=== PATIENT | female | born 1940 | race Caucasian/White ===

== ENCOUNTER 2024-07-26 12:30 | Inpatient (IN) | payer MEDICARE, OTHER ==
[~2024-07-26] VITALS: Ht 167.6 cm; Wt 59.0 kg
[2024-07-26] MEDS ORDERED: IPRATROPIUM BROMIDE 0.5 MG/2.5 ML NEBU ONE (13:24)
[2024-07-26] MEDS ORDERED: ALBUTEROL SULFATE 2.5 MG/3 ML NEBU ONE ×2 (13:24→14:32)
[2024-07-26 13:26] VITALS: O2SAT 99
[2024-07-26] MEDS: IPRATROPIUM BROMIDE 0.5 MG/2.5 ML NEBU NEB ONE (13:32)
[2024-07-26] MEDS: ALBUTEROL SULFATE 2.5 MG/3 ML NEBU NEB ONE ×2 (13:32→14:38)
[2024-07-26 13:46] LABS: BASOPHILS # (AUTO) 0.1 K/UL (0.0-0.2); BASOPHILS % (AUTO) 0.6 % (0.0-2.0); DIFFERENTIAL COMMENT 1; EOSINOPHILS # (AUTO) 0.4 K/uL (0.0-0.7); EOSINOPHILS % (AUTO) 3.8 % (0.0-7.0); HEMATOCRIT 29.3 % (31.2-41.9); HEMOGLOBIN 9.3 g/dL (10.9-14.3); LYMPHOCYTES # (AUTO) 1.3 K/uL (0.8-4.8); MEAN CORPUSCULAR HEMOGLOBIN 28.3 uug (24.7-32.8); MEAN CORPUSCULAR HGB CONC 32 g/dL (32.3-35.6); MEAN CORPUSCULAR VOLUME 89.7 fL (75.5-95.3); MONOCYTES # (AUTO) 0.7 K/uL (0.1-1.30); NEUTROPHILS # (AUTO) 8.2 K/uL (1.8-8.9); NEUTROPHILS % (AUTO) 76.6 % (38.5-71.5); PLATELET COUNT (AUTO) 295 K/uL (179-408); RED BLOOD CELL COUNT(AUTO) 3.27 MIL/uL (3.63-4.92); RED CELL DISTRIBUTION WIDTH 18.5 % (12.3-17.7); WHITE BLOOD COUNT (AUTO) 10.6 K/uL (3.8-11.8)
[2024-07-26 13:58] LABS: CALCIUM 8.8 mg/dL (8.5-10.1); CARBON DIOXIDE 29 mmol/L (21-32); CHLORIDE 107 mmol/L (98-107); GLUCOSE 93 mg/dL (74-106); POTASSIUM 5.1 mmol/L (3.5-5.1); SODIUM SERUM 143 mmol/L (136-145); UREA NITROGEN, BLOOD 29 mg/dL (7-18)
[2024-07-26] MEDS ORDERED: methylPREDNISolone SOD SUCC 125 MG/2 ML VIAL ONE (14:06)
[2024-07-26] MEDS ORDERED: MAGNESIUM SULFATE/D5W 200 ML ONE (14:06)
[2024-07-26 14:11] LABS: ALANINE AMINOTRANSFERASE 36 U/L (14-59); ALBUMIN 3.1 g/dL (3.4-5.0); ALKALINE PHOSPHATASE 151 U/L (50-136); ASPARTATE AMINOTRANSFERASE 26 U/L (15-37); BILIRUBIN,DIRECT 0.1 mg/dL (0.0-0.2); BILIRUBIN,TOTAL 0.3 mg/dL (0.2-1.0); NT-PRO BNP 355 pg/mL (0-125); TOTAL PROTEIN, SERUM 6.8 g/dL (6.4-8.2)
[2024-07-26] MEDS: MAGNESIUM SULFATE 2 GM in IV DEXTROSE 5% 100 ML IV ONE (14:11)
[2024-07-26] MEDS: methylPREDNISolone SOD SUCC 125 MG/2 ML VIAL IV ONE (14:11)
[2024-07-26] MEDS: IV NORMAL SALINE 1000 ML BAG IV ONE (14:11)
[2024-07-26 14:26] VITALS: O2SAT 100; O2SAT 99
[2024-07-26 14:35] VITALS: O2SAT 98
[2024-07-26 14:51] LABS: IRON, SERUM 32 ug/dL (50-175)
[2024-07-26 15:35] VITALS: O2SAT 100; O2SAT 98
[2024-07-26 16:07] LABS: ABG BASE EXCESS -1.9 mmol/L (-2.0-3.0); ABG HCO3 27.6 mmol/L (21.0-28.0); ABG PH 7.172 (7.350-7.450); ABG PO2 93.1 mmHg (83.0-108.0); ABG SITE RIGHT RADIAL; AaDO2 94.7 mmHg; COHb 0.8 % (0.5-1.5); MetHb 0.2 % (0.0-1.5); O2Hb 95.8 % (94.0-98.0)
[2024-07-26] MEDS ORDERED: IV NORMAL SALINE 250 ML IV ONE (16:36)
[2024-07-26] MEDS ORDERED: IOHEXOL 350 100 ML INFUS..BTL ONE ×2 (16:36→17:50)
[2024-07-26] MEDS ORDERED: SWABABLE VALVE TRANSFER SET EA MC ONE (16:36)
[2024-07-26] MEDS ORDERED: ENOXAPARIN SODIUM 60 MG/0.6 ML DISP.SYRIN SQ ONE (19:24)
[2024-07-26] MEDS ORDERED: TEMAZEPAM 15 MG CAPSULE PO PRN (19:30)
[2024-07-26] MEDS ORDERED: ONDANSETRON 4 MG/2 ML VIAL IV PRN (19:30)
[2024-07-26] MEDS ORDERED: levoFLOXacin 500 MG/D5W 500 MG in PREMIXED 1 EACH IV SCH (20:00)
[2024-07-26 21:00] VITALS: BP 148/85; TEMP 98
[2024-07-26] MEDS ORDERED: DOCUSATE SODIUM 250 MG CAPSULE PO SCH (21:00)
[2024-07-26] MEDS: DOCUSATE SODIUM 100 MG CAPSULE PO SCH (21:35)
[2024-07-26] MEDS: ENOXAPARIN SODIUM 60 MG/0.6 ML DISP.SYRIN SQ ONE (21:42)
[2024-07-26] MEDS: methylPREDNISolone SOD SUCC 40 MG/ML VIAL IV SCH (21:44)
[2024-07-27] VITALS (22 sets, daily range): BP systolic 96–209; BP diastolic 65–137; TEMP 97.7–98; O2SAT 95–100
[2024-07-27 05:32] LABS: BASOPHILS % (AUTO) 0.1 % (0.0-2.0); HEMATOCRIT 28.6 % (31.2-41.9); HEMOGLOBIN 9.4 g/dL (10.9-14.3); LYMPHOCYTES # (AUTO) 0.5 K/uL (0.8-4.8); LYMPHOCYTES % (AUTO) 5.2 % (20.5-51.5); MEAN CORPUSCULAR HEMOGLOBIN 28.9 uug (24.7-32.8); MEAN CORPUSCULAR HGB CONC 33 g/dL (32.3-35.6); MEAN CORPUSCULAR VOLUME 88.2 fL (75.5-95.3); MONOCYTES # (AUTO) 0.1 K/uL (0.1-1.30); MONOCYTES % (AUTO) 0.7 % (0.0-11.0); NEUTROPHILS # (AUTO) 9.2 K/uL (1.8-8.9); PLATELET COUNT (AUTO) 291 K/uL (179-408); RED BLOOD CELL COUNT(AUTO) 3.24 MIL/uL (3.63-4.92); RED CELL DISTRIBUTION WIDTH 18.3 % (12.3-17.7); WHITE BLOOD COUNT (AUTO) 9.8 K/uL (3.8-11.8)
[2024-07-27 06:00] LABS: ALANINE AMINOTRANSFERASE 42 U/L (14-59); ALBUMIN 3.1 g/dL (3.4-5.0); ALKALINE PHOSPHATASE 165 U/L (50-136); ASPARTATE AMINOTRANSFERASE 24 U/L (15-37); BILIRUBIN,TOTAL 0.2 mg/dL (0.2-1.0); CALCIUM 8.7 mg/dL (8.5-10.1); CARBON DIOXIDE 29 mmol/L (21-32); CHLORIDE 107 mmol/L (98-107); CHOLESTEROL 266 mg/dL (<200); GLUCOSE 135 mg/dL (74-106); HDL CHOLESTEROL 106 mg/dL (40-60); MAGNESIUM 2.3 mg/dL (1.8-2.4); PHOSPHOROUS 4.6 mg/dL (2.5-4.9); POTASSIUM 5.1 mmol/L (3.5-5.1); SODIUM SERUM 142 mmol/L (136-145); TOTAL PROTEIN, SERUM 6.9 g/dL (6.4-8.2); TRIGLYCERIDES 111 MG/DL (30-150); UREA NITROGEN, BLOOD 29 mg/dL (7-18)
[2024-07-27 06:07] LABS: THYROID STIMULATING HORMONE 4.056 mIU/mL (0.358-3.740)
[2024-07-27] MEDS: PANTOPRAZOLE SODIUM 40 MG TABLET.DR PO SCH (06:29)
[2024-07-27] MEDS: IPRATROPIUM BROMIDE 0.5 MG/2.5 ML NEBU NEB PRN (08:21)
[2024-07-27] MEDS: ALBUTEROL SULFATE 2.5 MG/ 0.5 ML NEBU NEB PRN (08:21)
[2024-07-27] MEDS: HYDROCODONE/APAP 5-325MG TABLET PO PRN (08:39)
[2024-07-27] MEDS: METOPROLOL TARTRATE 25 MG TABLET PO SCH (08:39)
[2024-07-27] MEDS: hydrALAZINE HCL 25 MG TABLET PO PRN (08:39)
[2024-07-27] MEDS: FLUTICASONE/VILANTEROL 1 EACH BLST.W.DEV INH SCH (09:00)
[2024-07-27] MEDS: CEFEPIME HCL 2 GM in IV DEXTROSE 5% 100 ML IV SCH (09:00)
[2024-07-27] MEDS ORDERED: levoFLOXacin 250MG /D5W 50 ML IV SCH ×2 (09:00)
[2024-07-27] MEDS: ENOXAPARIN SODIUM 60 MG/0.6 ML DISP.SYRIN SQ SCH (09:21)
[2024-07-27] MEDS: PROPOFOL 100 ML ONE (09:36)
[2024-07-27] MEDS ORDERED: LEVO75TA7 PO (12:55)
[2024-07-27] MEDS ORDERED: ESCI10TA PO (12:55)
[2024-07-27] MEDS ORDERED: INDO-12 PO (12:55)
[2024-07-27] MEDS ORDERED: DILT300T11 PO (12:55)
[2024-07-27] MEDS ORDERED: LOSA100T31 PO (12:55)
[2024-07-27] MEDS ORDERED: ZOLP5TAB8 PO (12:55)
[2024-07-27] MEDS ORDERED: HYDR-501 PO (12:55)
[2024-07-27] MEDS ORDERED: ROPI4TAB6 PO (12:55)
[2024-07-27] MEDS ORDERED: ATRO2DRO4 SL (13:01)
[2024-07-27] MEDS ORDERED: IPRA3AMP23 IH (13:01)
[2024-07-27] MEDS ORDERED: [UNRECOGNIZED DRUG - CODE] PO (13:01)
[2024-07-27 13:28] LABS: FERRITIN 135 ng/mL (8-252)
[2024-07-27] MEDS: PROPOFOL 100 ML IV PRN (15:47)
[2024-07-27] MEDS: IV D5 1/2 NS 1000 ML 1,000 ML IV PRN (21:54)
[2024-07-28] VITALS (50 sets, daily range): BP systolic 93–167; BP diastolic 56–102; TEMP 98.1–99.4; O2SAT 92–98
[2024-07-28 04:50] LABS: HEMATOCRIT 26.4 % (31.2-41.9); HEMOGLOBIN 8.5 g/dL (10.9-14.3); LYMPHOCYTES # (AUTO) 0.7 K/uL (0.8-4.8); LYMPHOCYTES % (AUTO) 3.5 % (20.5-51.5); MEAN CORPUSCULAR HEMOGLOBIN 28.5 uug (24.7-32.8); MEAN CORPUSCULAR HGB CONC 32 g/dL (32.3-35.6); MEAN CORPUSCULAR VOLUME 88.4 fL (75.5-95.3); MONOCYTES # (AUTO) 0.4 K/uL (0.1-1.30); MONOCYTES % (AUTO) 2.2 % (0.0-11.0); NEUTROPHILS # (AUTO) 18.2 K/uL (1.8-8.9); NEUTROPHILS % (AUTO) 94.3 % (38.5-71.5); PLATELET COUNT (AUTO) 314 K/uL (179-408); RED BLOOD CELL COUNT(AUTO) 2.98 MIL/uL (3.63-4.92); RED CELL DISTRIBUTION WIDTH 18.4 % (12.3-17.7); WHITE BLOOD COUNT (AUTO) 19.3 K/uL (3.8-11.8)
[2024-07-28 05:11] LABS: ALANINE AMINOTRANSFERASE 37 U/L (14-59); ALKALINE PHOSPHATASE 148 U/L (50-136); ASPARTATE AMINOTRANSFERASE 26 U/L (15-37); BILIRUBIN,TOTAL 0.2 mg/dL (0.2-1.0); CALCIUM 8.7 mg/dL (8.5-10.1); CARBON DIOXIDE 27 mmol/L (21-32); CHLORIDE 109 mmol/L (98-107); CREATININE 1.1 mg/dL (0.6-1.3); GLUCOSE 141 mg/dL (74-106); MAGNESIUM 2.4 mg/dL (1.8-2.4); PHOSPHOROUS 4.3 mg/dL (2.5-4.9); POTASSIUM 4.8 mmol/L (3.5-5.1); SODIUM SERUM 144 mmol/L (136-145); TOTAL PROTEIN, SERUM 6.6 g/dL (6.4-8.2); UREA NITROGEN, BLOOD 36 mg/dL (7-18)
[2024-07-28 08:10] LABS: *IMMUNOGLOBULIN G, SERUM 674 mg/dL (586-1602); CARCINOEMBRYONIC AG (CEA) 12.8 ng/mL (0.0-4.7); FOLATE (FOLIC ACID), SERUM >20.0 ng/mL (>3.0); IMMUNOGLOBULIN A, SERUM 208 mg/dL (64-422); IMMUNOGLOBULIN M, SERUM 66 mg/dL (26-217)
[2024-07-28 09:38] LABS: ABG BASE EXCESS -1.4 mmol/L (-2.0-3.0); ABG HCO3 24.8 mmol/L (21.0-28.0); ABG PCO2 48.8 mmHg (32.0-45.0); ABG PH 7.324 (7.350-7.450); ABG PO2 76.5 mmHg (83.0-108.0); ABG SITE LEFT RADIAL; ABG TOTAL HEMOGLOBIN 9.6 G/dL (12.0-16.0); AaDO2 94.2 mmHg; COHb 0.5 % (0.5-1.5); MetHb 0.3 % (0.0-1.5); O2Hb 94.6 % (94.0-98.0); VT, ABG 400 mL
[2024-07-28 09:38] LABS: ABG BASE EXCESS -2.9 mmol/L (-2.0-3.0); ABG HCO3 26.4 mmol/L (21.0-28.0); ABG PCO2 71.2 mmHg (32.0-45.0); ABG PH 7.187 (7.350-7.450); ABG PO2 206.5 mmHg (83.0-108.0); ABG SITE RIGHT RADIAL; ABG TOTAL HEMOGLOBIN 11.2 G/dL (12.0-16.0); AaDO2 99.1 mmHg; COHb 0.7 % (0.5-1.5); MetHb 0.1 % (0.0-1.5); O2Hb 98.8 % (94.0-98.0); VT, ABG 400 mL
[2024-07-28 16:07] LABS: FREE LAMBDA LT CHAIN SERUM 19.7 mg/L (5.7-26.3); KAPPA/LAMBDA RATIO SERUM 1.78 (0.26-1.65)
[2024-07-28] MEDS: PROPOFOL 100 ML IV PRN (21:52)
[2024-07-29] VITALS (81 sets, daily range): BP systolic 87–153; BP diastolic 60–90; TEMP 97.4–99.3; O2SAT 93–99
[2024-07-29] MEDS: ACETAMINOPHEN 325 MG TABLET PO PRN (00:01)
[2024-07-29] MEDS: PROPOFOL 100 ML IV PRN (00:59)
[2024-07-29 04:51] LABS: BASOPHILS % (AUTO) 0.1 % (0.0-2.0); HEMATOCRIT 22.9 % (31.2-41.9); HEMOGLOBIN 7.5 g/dL (10.9-14.3); LYMPHOCYTES # (AUTO) 0.5 K/uL (0.8-4.8); LYMPHOCYTES % (AUTO) 4.6 % (20.5-51.5); MEAN CORPUSCULAR HEMOGLOBIN 28.9 uug (24.7-32.8); MEAN CORPUSCULAR HGB CONC 33 g/dL (32.3-35.6); MEAN CORPUSCULAR VOLUME 88.4 fL (75.5-95.3); MONOCYTES # (AUTO) 0.5 K/uL (0.1-1.30); MONOCYTES % (AUTO) 3.9 % (0.0-11.0); NEUTROPHILS # (AUTO) 10.6 K/uL (1.8-8.9); NEUTROPHILS % (AUTO) 91.4 % (38.5-71.5); PLATELET COUNT (AUTO) 261 K/uL (179-408); RED BLOOD CELL COUNT(AUTO) 2.59 MIL/uL (3.63-4.92); RED CELL DISTRIBUTION WIDTH 18.1 % (12.3-17.7); WHITE BLOOD COUNT (AUTO) 11.6 K/uL (3.8-11.8)
[2024-07-29 04:59] LABS: DIFFERENTIAL COMMENT 1
[2024-07-29 05:10] LABS: CALCIUM 7.9 mg/dL (8.5-10.1); CARBON DIOXIDE 25 mmol/L (21-32); CHLORIDE 107 mmol/L (98-107); CREATININE 1.1 mg/dL (0.6-1.3); GLUCOSE 160 mg/dL (74-106); MAGNESIUM 2.2 mg/dL (1.8-2.4); PHOSPHOROUS 3.4 mg/dL (2.5-4.9); POTASSIUM 4.5 mmol/L (3.5-5.1); SODIUM SERUM 140 mmol/L (136-145); UREA NITROGEN, BLOOD 34 mg/dL (7-18)
[2024-07-29 06:02] LABS: ABG BASE EXCESS -2.5 mmol/L (-2.0-3.0); ABG HCO3 24.7 mmol/L (21.0-28.0); ABG PCO2 54.8 mmHg (32.0-45.0); ABG PH 7.271 (7.350-7.450); ABG PO2 75.5 mmHg (83.0-108.0); ABG SITE RIGHT RADIAL; ABG TOTAL HEMOGLOBIN 9.1 G/dL (12.0-16.0); AaDO2 93.1 mmHg; COHb 0.5 % (0.5-1.5); MetHb 0.4 % (0.0-1.5); O2Hb 93.6 % (94.0-98.0); VT, ABG 400 mL
[2024-07-29] MEDS: IV NORMAL SALINE 250 ML IV PRN (13:10)
[2024-07-29] MEDS: SOD FERRIC GLUC COMPLX/SUCROSE 125 MG in IV NORMAL SALINE 100 ML IV SCH (14:19)
[2024-07-30] VITALS (43 sets, daily range): BP systolic 94–179; BP diastolic 61–104; TEMP 97.7–98.1; O2SAT 91–100
[2024-07-30 05:01] LABS: BASOPHILS % (AUTO) 0.2 % (0.0-2.0); HEMATOCRIT 26.9 % (31.2-41.9); HEMOGLOBIN 8.6 g/dL (10.9-14.3); LYMPHOCYTES # (AUTO) 0.8 K/uL (0.8-4.8); MEAN CORPUSCULAR HEMOGLOBIN 28.9 uug (24.7-32.8); MEAN CORPUSCULAR HGB CONC 32 g/dL (32.3-35.6); MEAN CORPUSCULAR VOLUME 90.6 fL (75.5-95.3); MONOCYTES # (AUTO) 0.7 K/uL (0.1-1.30); MONOCYTES % (AUTO) 5.7 % (0.0-11.0); NEUTROPHILS # (AUTO) 10.4 K/uL (1.8-8.9); NEUTROPHILS % (AUTO) 87.1 % (38.5-71.5); PLATELET COUNT (AUTO) 268 K/uL (179-408); RED BLOOD CELL COUNT(AUTO) 2.97 MIL/uL (3.63-4.92); RED CELL DISTRIBUTION WIDTH 18.9 % (12.3-17.7)
[2024-07-30 05:12] LABS: CALCIUM 7.9 mg/dL (8.5-10.1); CARBON DIOXIDE 27 mmol/L (21-32); CHLORIDE 109 mmol/L (98-107); GLUCOSE 142 mg/dL (74-106); PHOSPHOROUS 2.9 mg/dL (2.5-4.9); POTASSIUM 4.6 mmol/L (3.5-5.1); SODIUM SERUM 143 mmol/L (136-145); UREA NITROGEN, BLOOD 32 mg/dL (7-18)
[2024-07-30 09:05] LABS: ABG BASE EXCESS -2.1 mmol/L (-2.0-3.0); ABG PCO2 54.5 mmHg (32.0-45.0); ABG PH 7.279 (7.350-7.450); ABG PO2 82.6 mmHg (83.0-108.0); ABG SITE RIGHT RADIAL; ABG TOTAL HEMOGLOBIN 9.9 G/dL (12.0-16.0); AaDO2 94.7 mmHg; COHb 0.3 % (0.5-1.5); MetHb 0.2 % (0.0-1.5); O2Hb 95.7 % (94.0-98.0); VT, ABG 400 mL
[2024-07-30] MEDS: VITAL AF 1.2 1,000 ML LIQUID GT PRN (11:24)
[2024-07-30] MEDS: PRECEDEX 400 MCG/100 ML BOTTLE 100 ML IV PRN (13:31)
[2024-07-30] MEDS: FENTANYL CITRATE/PF 1,000 MCG in IV NORMAL SALINE 80 ML IV PRN (13:50)
[2024-07-30] MEDS: METOPROLOL TARTRATE 5 MG/5 ML VIAL IVP PRN (17:39)
[2024-07-30] MEDS: MIDAZOLAM HCL 50 MG in IV NORMAL SALINE 40 ML IV PRN (19:17)
[2024-07-30] MEDS ORDERED: ENALAPRILAT DIHYDRATE 1.25 MG/1 ML VIAL IV ONE (23:11)
[2024-07-30] MEDS: ENALAPRILAT DIHYDRATE 2.5 MG/2 ML VIAL IV PRN (23:15)
[2024-07-31] VITALS (38 sets, daily range): BP systolic 67–161; BP diastolic 41–108; TEMP 97.2–98.2; O2SAT 96–100
[2024-07-31] MEDS ORDERED: AMIODARONE HCL IV 450 MG in IV DEXTROSE 5% 250 ML IV PRN (04:00)
[2024-07-31] MEDS: AMIODARONE HCL IV 150 MG in IV DEXTROSE 5% 100 ML IV ONE (04:08)
[2024-07-31 04:59] LABS: BASOPHILS % (AUTO) 0.1 % (0.0-2.0); EOSINOPHILS % (AUTO) 0.1 % (0.0-7.0); HEMATOCRIT 25.7 % (31.2-41.9); HEMOGLOBIN 8.4 g/dL (10.9-14.3); LYMPHOCYTES # (AUTO) 0.8 K/uL (0.8-4.8); LYMPHOCYTES % (AUTO) 9.8 % (20.5-51.5); MEAN CORPUSCULAR HGB CONC 33 g/dL (32.3-35.6); MEAN CORPUSCULAR VOLUME 88.6 fL (75.5-95.3); MONOCYTES # (AUTO) 0.4 K/uL (0.1-1.30); MONOCYTES % (AUTO) 5.5 % (0.0-11.0); NEUTROPHILS # (AUTO) 6.9 K/uL (1.8-8.9); NEUTROPHILS % (AUTO) 84.5 % (38.5-71.5); PLATELET COUNT (AUTO) 227 K/uL (179-408); RED CELL DISTRIBUTION WIDTH 18.3 % (12.3-17.7); WHITE BLOOD COUNT (AUTO) 8.2 K/uL (3.8-11.8)
[2024-07-31] MEDS ORDERED: TEMAZEPAM 15 MG CAPSULE PO PRN (05:15)
[2024-07-31] MEDS ORDERED: ENALAPRILAT DIHYDRATE 1.25 MG/1 ML VIAL IV PRN (05:15)
[2024-07-31 05:53] LABS: ALANINE AMINOTRANSFERASE 27 U/L (14-59); ALBUMIN 2.1 g/dL (3.4-5.0); ALKALINE PHOSPHATASE 116 U/L (50-136); ASPARTATE AMINOTRANSFERASE 11 U/L (15-37); BILIRUBIN,TOTAL 0.2 mg/dL (0.2-1.0); CALCIUM 7.7 mg/dL (8.5-10.1); CARBON DIOXIDE 26 mmol/L (21-32); CHLORIDE 107 mmol/L (98-107); CREATININE 0.9 mg/dL (0.6-1.3); GLUCOSE 168 mg/dL (74-106); MAGNESIUM 1.9 mg/dL (1.8-2.4); POTASSIUM 4.5 mmol/L (3.5-5.1); SODIUM SERUM 139 mmol/L (136-145); TOTAL PROTEIN, SERUM 5.2 g/dL (6.4-8.2); TRIGLYCERIDES 144 MG/DL (30-150); UREA NITROGEN, BLOOD 34 mg/dL (7-18)
[2024-07-31 08:37] LABS: ABG BASE EXCESS -4.3 mmol/L (-2.0-3.0); ABG HCO3 25.7 mmol/L (21.0-28.0); ABG PH 7.142 (7.350-7.450); ABG PO2 < 40.5 mmHg (83.0-108.0); ABG SITE RIGHT BRACHIAL; AaDO2 46.2 mmHg; COHb 1.2 % (0.5-1.5); MetHb 0.1 % (0.0-1.5); O2Hb 53.6 % (94.0-98.0)
[2024-07-31 10:12] LABS: A/G RATIO 1.1 (0.7-1.7); ALPHA-1-GLOBULIN 0.3 g/dL (0.0-0.4); ALPHA-2-GLOBULIN 0.8 g/dL (0.4-1.0); GAMMA GLOBULIN 0.6 g/dL (0.4-1.8); GLOBULIN, TOTAL 2.7 g/dL (2.2-3.9); M-SPIKE Not Observed g/dL (Not Observed); PROTEIN, TOTAL 5.7 g/dL (6.0-8.5)
[2024-07-31] MEDS: DOCUSATE SODIUM 100 MG/10 ML LIQUID UDC NG SCH (20:18)
[2024-07-31] MEDS ORDERED: DOCUSATE SODIUM 100 MG CAPSULE PO SCH (21:00)
[2024-08-01] VITALS (24 sets, daily range): BP systolic 95–170; BP diastolic 60–98; TEMP 97.8–98.6; O2SAT 95–99
[2024-08-01 05:02] LABS: BASOPHILS % (AUTO) 0.2 % (0.0-2.0); EOSINOPHILS % (AUTO) 0.1 % (0.0-7.0); HEMATOCRIT 26.6 % (31.2-41.9); HEMOGLOBIN 8.4 g/dL (10.9-14.3); LYMPHOCYTES % (AUTO) 8.9 % (20.5-51.5); MEAN CORPUSCULAR HEMOGLOBIN 28.4 uug (24.7-32.8); MEAN CORPUSCULAR HGB CONC 32 g/dL (32.3-35.6); MEAN CORPUSCULAR VOLUME 90.2 fL (75.5-95.3); MONOCYTES # (AUTO) 0.4 K/uL (0.1-1.30); MONOCYTES % (AUTO) 3.6 % (0.0-11.0); NEUTROPHILS # (AUTO) 9.9 K/uL (1.8-8.9); NEUTROPHILS % (AUTO) 87.2 % (38.5-71.5); PLATELET COUNT (AUTO) 232 K/uL (179-408); RED BLOOD CELL COUNT(AUTO) 2.95 MIL/uL (3.63-4.92); RED CELL DISTRIBUTION WIDTH 18.8 % (12.3-17.7); WHITE BLOOD COUNT (AUTO) 11.3 K/uL (3.8-11.8)
[2024-08-01 05:04] LABS: DIFFERENTIAL COMMENT 1
[2024-08-01 05:08] LABS: CALCIUM 7.8 mg/dL (8.5-10.1); CARBON DIOXIDE 25 mmol/L (21-32); CHLORIDE 105 mmol/L (98-107); CREATININE 0.8 mg/dL (0.6-1.3); GLUCOSE 154 mg/dL (74-106); POTASSIUM 4.3 mmol/L (3.5-5.1); SODIUM SERUM 138 mmol/L (136-145); UREA NITROGEN, BLOOD 38 mg/dL (7-18)
[2024-08-01] MEDS: MORPHINE SULFATE 2 MG/1 ML DISP.SYRIN IV PRN (21:17)
[2024-08-02] VITALS (26 sets, daily range): BP systolic 104–174; BP diastolic 57–113; TEMP 97.2–98; O2SAT 90–97
[2024-08-02] MEDS: METOCLOPRAMIDE HCL 10 MG/10 ML UDC NG SCH (00:35)
[2024-08-02] MEDS: VITAL AF 1.2 1,000 ML LIQUID GT PRN (04:06)
[2024-08-02 04:59] LABS: BASOPHILS % (AUTO) 0.3 % (0.0-2.0); EOSINOPHILS % (AUTO) 0.1 % (0.0-7.0); HEMATOCRIT 24.5 % (31.2-41.9); HEMOGLOBIN 7.6 g/dL (10.9-14.3); LYMPHOCYTES # (AUTO) 0.8 K/uL (0.8-4.8); LYMPHOCYTES % (AUTO) 6.1 % (20.5-51.5); MEAN CORPUSCULAR HEMOGLOBIN 28.4 uug (24.7-32.8); MEAN CORPUSCULAR HGB CONC 31 g/dL (32.3-35.6); MONOCYTES # (AUTO) 0.8 K/uL (0.1-1.30); MONOCYTES % (AUTO) 6.6 % (0.0-11.0); NEUTROPHILS # (AUTO) 10.7 K/uL (1.8-8.9); NEUTROPHILS % (AUTO) 86.9 % (38.5-71.5); PLATELET COUNT (AUTO) 242 K/uL (179-408); RED BLOOD CELL COUNT(AUTO) 2.69 MIL/uL (3.63-4.92); RED CELL DISTRIBUTION WIDTH 18.9 % (12.3-17.7); WHITE BLOOD COUNT (AUTO) 12.3 K/uL (3.8-11.8)
[2024-08-02 05:12] LABS: CALCIUM 7.8 mg/dL (8.5-10.1); CARBON DIOXIDE 27 mmol/L (21-32); CHLORIDE 105 mmol/L (98-107); CREATININE 0.8 mg/dL (0.6-1.3); GLUCOSE 124 mg/dL (74-106); POTASSIUM 4.8 mmol/L (3.5-5.1); SODIUM SERUM 137 mmol/L (136-145); UREA NITROGEN, BLOOD 34 mg/dL (7-18)
[2024-08-02] MEDS: PANTOPRAZOLE ORAL SUSPENSION 40 MG SUSPDR.PKT NG SCH (07:54)
[2024-08-02] MEDS: METOCLOPRAMIDE HCL 10 MG/2 ML VIAL IV SCH (18:17)
[2024-08-03] VITALS (26 sets, daily range): BP systolic 105–190; BP diastolic 57–95; TEMP 97.8–98.2; O2SAT 40–99
[2024-08-03 05:20] LABS: BASOPHILS % (AUTO) 0.3 % (0.0-2.0); EOSINOPHILS % (AUTO) 0.1 % (0.0-7.0); HEMATOCRIT 25.8 % (31.2-41.9); LYMPHOCYTES # (AUTO) 0.4 K/uL (0.8-4.8); LYMPHOCYTES % (AUTO) 3.3 % (20.5-51.5); MEAN CORPUSCULAR HEMOGLOBIN 29.1 uug (24.7-32.8); MEAN CORPUSCULAR HGB CONC 31 g/dL (32.3-35.6); MEAN CORPUSCULAR VOLUME 93.7 fL (75.5-95.3); MONOCYTES # (AUTO) 0.9 K/uL (0.1-1.30); MONOCYTES % (AUTO) 7.6 % (0.0-11.0); NEUTROPHILS # (AUTO) 10.9 K/uL (1.8-8.9); NEUTROPHILS % (AUTO) 88.7 % (38.5-71.5); PLATELET COUNT (AUTO) 251 K/uL (179-408); RED BLOOD CELL COUNT(AUTO) 2.75 MIL/uL (3.63-4.92); RED CELL DISTRIBUTION WIDTH 19.3 % (12.3-17.7); WHITE BLOOD COUNT (AUTO) 12.4 K/uL (3.8-11.8)
[2024-08-03 05:27] LABS: CALCIUM 8.2 mg/dL (8.5-10.1); CARBON DIOXIDE 23 mmol/L (21-32); CHLORIDE 104 mmol/L (98-107); GLUCOSE 124 mg/dL (74-106); POTASSIUM 5.7 mmol/L (3.5-5.1); SODIUM SERUM 133 mmol/L (136-145); UREA NITROGEN, BLOOD 37 mg/dL (7-18)
[2024-08-03] MEDS: FUROSEMIDE 20 MG/2 ML VIAL IV ONE (07:30)
[2024-08-03] MEDS: SODIUM POLYSTYRENE SULFONATE 15 G/60 ML LIQUID UDC NG ONE (07:33)
[2024-08-03] MEDS: PANTOPRAZOLE SODIUM 40 MG VIAL IV SCH (08:25)
[2024-08-03 09:17] LABS: ABG BASE EXCESS -4.9 mmol/L (-2.0-3.0); ABG HCO3 23.9 mmol/L (21.0-28.0); ABG PCO2 66.2 mmHg (32.0-45.0); ABG PH 7.175 (7.350-7.450); ABG PO2 83.5 mmHg (83.0-108.0); ABG SITE LEFT RADIAL; ABG TOTAL HEMOGLOBIN 9.2 G/dL (12.0-16.0); AaDO2 93.1 mmHg; COHb 1.5 % (0.5-1.5); MetHb 0.1 % (0.0-1.5); O2Hb 95.3 % (94.0-98.0); VT, ABG 500 mL
[2024-08-03] MEDS ORDERED: MORPHINE SULFATE PF IV DRIP 100 MG in IV DEXTROSE 5% 96 ML IV PRN ×2 (15:15→15:30)
[2024-08-03] MEDS: MORPHINE SULFATE PF IV DRIP 100 MG in IV DEXTROSE 5% 96 ML IV PRN (16:15)
[2024-08-03] MEDS: LORAZEPAM 2 MG/1 ML VIAL IV PRN (16:41)
[2024-08-03] MEDS: LORAZEPAM 2 MG/1 ML VIAL IV ONE (17:08)
== END 2024-08-03 17:00 | disposition hospice, inpatient (51) | DRG 207 ==
LOC: ER 12:30 → TRANSITION 18:05 → UNDOADMIN 18:05 → CCU 20:44
PROVIDERS: ADMIT Internal Medicine; ATTEND Internal Medicine
PROC: 5A09357 Assistance with Respiratory Ventilation, Less than 24 Consecutive Hours, Continuous Positive Airway Pressure (ICD-10-PCS; 2024-07-26)
PROC: 5A1955Z Respiratory Ventilation, Greater than 96 Consecutive Hours (ICD-10-PCS; principal; 2024-07-27)
PROC: 0BH17EZ Insertion of Endotracheal Airway into Trachea, Via Natural or Artificial Opening (ICD-10-PCS; 2024-07-27)
PROC: 05HC33Z Insertion of Infusion Device into Left Basilic Vein, Percutaneous Approach (ICD-10-PCS; 2024-07-28)
PROC: 05HB33Z Insertion of Infusion Device into Right Basilic Vein, Percutaneous Approach (ICD-10-PCS; 2024-08-01)
DX: J96.21 Acute and chronic respiratory failure with hypoxia (principal); I26.93 Single subsegmental thrombotic pulmonary embolism without acute cor pulmonale; C34.01 Malignant neoplasm of right main bronchus; J44.1 Chronic obstructive pulmonary disease with (acute) exacerbation; E44.1 Mild protein-calorie malnutrition; Z51.5 Encounter for palliative care; C79.9 Secondary malignant neoplasm of unspecified site; E87.4 Mixed disorder of acid-base balance; G93.40 Encephalopathy, unspecified; J96.22 Acute and chronic respiratory failure with hypercapnia; J43.2 Centrilobular emphysema; Z99.81 Dependence on supplemental oxygen; Z87.891 Personal history of nicotine dependence; Z85.038 Personal history of other malignant neoplasm of large intestine; D50.0 Iron deficiency anemia secondary to blood loss (chronic); E87.5 Hyperkalemia; M15.9 Polyosteoarthritis, unspecified; R59.0 Localized enlarged lymph nodes; R13.10 Dysphagia, unspecified; Z88.1 Allergy status to other antibiotic agents; Z88.0 Allergy status to penicillin; Z96.651 Presence of right artificial knee joint; Z88.5 Allergy status to narcotic agent
CPT/HCPCS: 36415; 36600; 71045; 71275; 82378; 82746; 82784; 82803; 83550; 83605; 83735; 84100; 84155; 84165; 84443; 84478; 84484; 85025; 85730; 86301; 86334; 87040; 93005; 94002; 94003; 94640; 94660; 94664; 94760; 99082-TC; A4606; A4663; G0378; J0282; J0692; J1650; J1940; J1956; J2060; J2250; J2270; J2274; J2470; J2765; J2916; J2919; J3010; J3475; J3490; J3590; J7040; J8597; Q9967

== ENCOUNTER 2024-08-03 18:34 | Inpatient (IN) | payer OTHER ==
[~2024-08-03] VITALS: Ht 165.1 cm; Wt 90.7 kg
[2024-08-03 18:30] VITALS: BP 147/57; TEMP 97.8
[~2024-08-03 18:34] MED LIST: ATRO2DRO4 SL; DILT300T11 PO; ESCI10TA PO; HYDR-501 PO; INDO-12 PO; IPRA3AMP23 IH; LEVO75TA7 PO; LOSA100T31 PO; ROPI4TAB6 PO; ZOLP5TAB8 PO; [UNRECOGNIZED DRUG - CODE] PO
[2024-08-03] MEDS ORDERED: MORPHINE SULFATE PF IV DRIP 100 MG in IV DEXTROSE 5% 96 ML IV PRN (18:45)
[2024-08-03] MEDS ORDERED: LORAZEPAM 2 MG/1 ML VIAL IV PRN (18:45)
[2024-08-03 19:36] VITALS: O2SAT 36; O2SAT 83
[2024-08-03 20:00] VITALS: BP 139/65; TEMP 98
[2024-08-03 22:40] VITALS: BP 118/49
[2024-08-04] VITALS (11 sets, daily range): BP systolic 69–114; BP diastolic 37–55; TEMP 97.7–98; O2SAT 82–92
[2024-08-04] MEDS: MORPHINE SULFATE PF IV DRIP 100 MG in IV DEXTROSE 5% 96 ML IV PRN (02:58)
== END 2024-08-04 17:03 | DRG 951 ==
LOC: CCU 18:34
PROVIDERS: ADMIT Nurse Practitioner Family; ATTEND Nurse Practitioner Family
DX: Z51.5 Encounter for palliative care (principal); J96.00 Acute respiratory failure, unspecified whether with hypoxia or hypercapnia; J44.9 Chronic obstructive pulmonary disease, unspecified; Z66 Do not resuscitate; Z88.0 Allergy status to penicillin; Z88.1 Allergy status to other antibiotic agents; I50.84 End stage heart failure; R91.8 Other nonspecific abnormal finding of lung field
CPT/HCPCS: A4606; G0378; J2274